=== PATIENT | male | born 1990 | race Caucasian/White ===

== ENCOUNTER 2020-09-05 16:55 | Emergency (ER) | payer SELFPAY ==
[~2020-09-05] VITALS: Ht 177.8 cm; Wt 80.0 kg
--- NOTE | 2020-09-05 17:00 | PHYS DOC ---
Past History Past Medical History: No Pertinent History Past Surgical History: No Surgical History Smoking: Cigarettes Alcohol Use: None Drug Use: None General Adult EDM: Chief Complaint: Dental pain HPI: HPI: Patient is a 29 year old male who presents to the ED with complaint of tooth pain, that started two weeks ago. Pain is located to the right lower, first molar. Patient has history of prior cavity on that tooth, and stated recently his filling fell out, and the back portion of his tooth has "crumbled." Patient states he doesn't have a dentist to follow with. He tried liquid Advil over his tooth , with minimal relief. NO trouble swallowing or SOB. No neck swelling. No other symptoms or complaints. Review of Systems: Review of Systems: Constitutional: Denies fever or chills Eyes: Denies redness or eye pain HENT: Denies nasal congestion or sore throat; reports toothache Respiratory: Denies cough or shortness of breath Cardiovascular: Denies chest pain or palpitations GI: Denies abdominal pain, nausea, or vomiting : Denies dysuria or hematuria Musculoskeletal: Denies back pain or joint pain Integument: Denies rash or skin lesions Neurologic: Denies headache, focal weakness or sensory changes Complete systems were reviewed and found to be within normal limits, except as documented in this note. Physical Exam: PE: Constitutional: Well developed, well nourished, no acute distress, non-toxic appearance HENT: Normocephalic, atraumatic, posterior dental wali noted to right mandibular 1st molar, no drainable fluctuance noted Eyes: Conjunctiva normal, no discharge Neck: Normal range of motion, supple Lungs & Thorax: No respiratory distress, equal chest rise and fall Skin: Warm, dry, no erythema, no rash Neurologic: Alert and oriented X 3, no focal deficits noted Psychologic: Affect normal, judgment normal Course & Med Decision Making: Course & Med Decision Making Patient is a 29 year old male that presents with dental pain. Dental carry noted. No drainable abscess appreciated. Symptomatic treatment provided with oral steroid. Empiric antibiotic initiated. Patient stable for discharge with outpatient follow-up with PCP/dentist. Dental resources provided. Discussed findings and plan with patient, who acknowledges understanding and agreement. Tino Disclaimer: Tino Disclaimer: This electronic medical record was generated, in whole or in part, using a voice recognition dictation system. Departure Departure: Impression: Primary Impression: Dentagra Additional Impression: Dental caries Disposition: 01 DC HOME SELF CARE/HOMELESS Condition: STABLE Patient Instructions: Dental Caries, Toothache-Brief Scripts Prednisone (PREDNISONE) 20 Mg Tablet 2 TAB PO DAILY for dental inflammation, #8 TAB start this prescription tomorrow 09/06/20 Prov: TOÑA SIMS DO 09/05/20 Chlorhexidine Gluconate (PERIDEX) 15 Ml Mouthwash 15 ML PO BID for dental infection , #473 ML 0 Refills Prov: TOÑA SIMS DO 09/05/20 Amoxicillin/Potassium Clav (AUGMENTIN 875-125 TABLET) 1 Each Tablet 1 TAB PO BID for dental infection for 7 Days, #14 TAB 0 Refills Prov: TOÑA SIMS DO 09/05/20 TOÑA SIMS DO Sep 05, 2020 16:59
[2020-09-05 17:07] VITALS: BP 144/75
[2020-09-05] MEDS ORDERED: AMOXICILLIN/K CLAV 875/125MG TABLET. PO ONE (17:30)
[2020-09-05] MEDS ORDERED: DEXAMETHASONE 4 MG TABLET PO ONE (17:30)
[2020-09-05] MEDS ORDERED: CHLO15MO2 PO (17:31)
[2020-09-05] MEDS ORDERED: AMOX1TAB61 PO (17:31)
[2020-09-05] MEDS ORDERED: PRED20TA PO (17:31)
== END 2020-09-05 17:34 | disposition home or self-care (01) ==
LOC: ER 16:55
DX: K02.9 Dental caries, unspecified (principal); F17.210 Nicotine dependence, cigarettes, uncomplicated
CPT/HCPCS: 99283; J8540

== ENCOUNTER 2021-04-28 18:53 | Emergency (ER) | payer SELFPAY ==
[~2021-04-28] VITALS: Ht 180.3 cm; Wt 79.0 kg
[~2021-04-28 18:53] MED LIST: AMOX1TAB61 PO; CHLO15MO2 PO; PRED20TA PO
[2021-04-28 19:40] VITALS: BP 130/70
--- NOTE | 2021-04-28 19:41 | PHYS DOC ---
Past History Past Medical History: No Pertinent History Past Surgical History: No Surgical History Smoking: Cigarettes Alcohol Use: None Drug Use: None General Adult EDM: Chief Complaint: DENTAL PROBLEM HPI: HPI: ".. I got another bad tooth.. 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 but now I got infection in my face... " Patient is a 30 year old male who presents with above hx and complaints of dental pain tooth 32 in hallway #1. The patient has surrounding gingivitis. Marked pain and tooth 32. Is missing tooth 31. No trismus. Has facial swelling and adenopathy at angle of mandible. Patient denies any history of immune suppression. No recent travel. Recently discharged from [facility].. No specific ill contacts. Does continue to smoke cigarettes. Tooth 31 from prior visit on 09/05/2020 has been extracted. Patient has been using [id number] meds such as Advil and Tylenol with no relief. Patient denies any difficulty swallowing. No shortness of breath. No obvious tracking abscesses into the neck or throat or under his tongue. Review of Systems: Review of Systems: Constitutional: Denies fever or chills Eyes: Denies change in visual acuity HENT: Denies nasal congestion or sore throat. Complains of dental pain and facial infection Respiratory: Denies cough or shortness of breath Cardiovascular: Denies chest pain or edema GI: Denies abdominal pain, nausea, vomiting, bloody stools or diarrhea : Denies dysuria Musculoskeletal: Denies back pain or joint pain Integument: Denies rash Neurologic: Denies headache, focal weakness or sensory changes Endocrine: Denies polyuria or polydipsia Lymphatic: Denies swollen glands Psychiatric: Denies depression or anxiety Family History: Family History: Noncontributory to presentation Current Medications: Current Meds: See nursing for home meds Allergies: Allergies: Allergies Coded Allergies Type Severity Reaction Last Updated Verified No Known Drug Allergies 09/05/20 No Physical Exam: PE: Constitutional: Well developed, well nourished, in acute distress, non-toxic appearance. [] HENT: Normocephalic, atraumatic, bilateral external ears normal, oropharynx moist, no oral exudates, nose normal. Marked pain and tooth #32. Facial cellulitis and adenopathy Eyes: PERRLA, EOMI, conjunctiva normal, no discharge. [] Neck: Normal range of motion, no tenderness, supple, no stridor. [] Cardiovascular:Heart rate regular rhythm, no murmur [] Lungs & Thorax: Bilateral breath sounds equal apex with scattered wheezes auscultation [] Abdomen: Bowel sounds normal, soft, no tenderness, no masses, no pulsatile masses. [] Skin: Warm, dry, no erythema, no rash. [] Back: No tenderness, no CVA tenderness. [] Extremities: No tenderness, no cyanosis, no clubbing, ROM intact, no edema. [] Neurologic: Alert and oriented X 3, normal motor function, normal sensory function, no focal deficits noted. [] Psychologic: Affect anxious, judgement normal, mood normal. [] EKG: EKG: [] Radiology/Procedures: Radiology/Procedures: [] Heart Score: C/O Chest Pain: N/A Risk Factors: Risk Factors: DM, Current or recent (<one month) smoker, HTN, HLP, family history of CAD, obesity. Risk Scores: Score 0 - 3: 2.5% MACE over next 6 weeks - Discharge Home Score 4 - 6: 20.3% MACE over next 6 weeks - Admit for Clinical Observation Score 7 - 10: 72.7% MACE over next 6 weeks - Early Invasive Strategies Course & Med Decision Making: Course & Med Decision Making Pertinent Labs and Imaging studies reviewed. (See chart for details) Patient to keep dental appointment. May need tooth extraction. Take Keflex 500 mg 3 times a day. Follow-up with primary care. Follow-up with dentist. Return if any concerns. Impression: 1. Dental pain 2. Dental infection 3. Facial infection-cellulitis ( suspect dental problem cause of extension to the face) [] Dragon Disclaimer: Tino Disclaimer: This electronic medical record was generated, in whole or in part, using a voice recognition dictation system. Departure Departure: Referrals: PCP,NO (PCP) Scripts Cephalexin (KEFLEX) 500 Mg Capsule 500 MG PO TID for dental infection for 10 Days, #30 CAP Prov: PIERO LEYVA MD 04/28/21 Tino Disclaimer This chart was dictated in whole or in part using Voice Recognition software in a busy, high-work load, and often noisy Emergency Department environment. It may contain unintended and wholly unrecognized errors or omissions. PIERO LEYVA MD Apr 28, 2021 19:41
[2021-04-28] MEDS ORDERED: CEPH500C PO (21:24)
[2021-04-28] MEDS ORDERED: oxyCODONE/APAP 7.5/325 1 TAB TABLET ONE (21:50)
[2021-04-28] MEDS ORDERED: KETOROLAC 60 MG/2 ML VIAL. IM ONE (22:00)
[2021-04-28] MEDS ORDERED: cefTRIAXone IM 1 GM VIAL IM ONE (22:00)
[2021-04-28] MEDS ORDERED: oxyCODONE/APAP 7.5/325 1 TAB TABLET PO ONE (22:00)
== END 2021-04-28 21:56 | disposition home or self-care (01) ==
LOC: ER 18:53
DX: L03.211 Cellulitis of face (principal); K04.7 Periapical abscess without sinus; F17.210 Nicotine dependence, cigarettes, uncomplicated
CPT/HCPCS: 96372; 99283; J0696